=== PATIENT | female | born 1960 | race Caucasian/White ===

== ENCOUNTER 2017-03-11 12:00 | Emergency (ER) | payer BC ==
[~2017-03-11] VITALS: Ht 175.3 cm; Wt 74.8 kg
[2017-03-11] MEDS ORDERED: TENORMIN50 MG PO (12:37)
[2017-03-11] MEDS ORDERED: LITE COAT ASPI325 MG PO (12:38)
[2017-03-11] MEDS ORDERED: FENOFIBRATE160 MG PO (12:38)
== END 2017-03-11 14:10 | disposition home or self-care (01) ==
LOC: ED 12:00
PROC: 0HQ1XZZ Repair Face Skin, External Approach (ICD-10-PCS; principal; 2017-03-11)
DX: S01.81XA Laceration without foreign body of other part of head, initial encounter (principal); S16.1XXA Strain of muscle, fascia and tendon at neck level, initial encounter; S80.01XA Contusion of right knee, initial encounter; S80.02XA Contusion of left knee, initial encounter; I10 Essential (primary) hypertension; E78.00 Pure hypercholesterolemia, unspecified; Z90.49 Acquired absence of other specified parts of digestive tract; Z79.899 Other long term (current) drug therapy; Z79.82 Long term (current) use of aspirin; Z88.8 Allergy status to other drugs, medicaments and biological substances; W18.30XA Fall on same level, unspecified, initial encounter
CPT/HCPCS: 12001; 72040; 99283